=== PATIENT | male | born 1990 | race Caucasian/White ===

== ENCOUNTER 2016-03-21 11:20 | Emergency (ER) | payer SELFPAY ==
[~2016-03-21] VITALS: Ht 170.2 cm; Wt 99.0 kg
[~2016-03-21 11:20] MED LIST: CALC500C3 PO
[2016-03-21 11:29] VITALS: TEMP 37.6; Ht 170.2 cm; Wt 99.0 kg
[2016-03-21] MEDS ORDERED: MTR400 PO (11:34)
[2016-03-21] MEDS ORDERED: MTR800 PO (11:34)
[2016-03-21] MEDS ORDERED: [UNRECOGNIZED DRUG - CODE] PO (11:35)
[2016-03-21] MEDS ORDERED: AMOX500T3 PO (13:10)
--- NOTE | 2016-03-21 13:10 | EMERGENCY ROOM VISIT NOTE ---
History First contact with patient: 11:46 Chief Complaint: SORETHROAT Stated Complaint: SORE THROAT, SWELLING, RT EAR PAIN History of Present Illness The patient is a 25 year old male who presents to the Emergency Room with complaints of sore throat times one week. The patient reports that he recently got over cold symptoms. He had had a runny nose and watery eyes, but states these symptoms have resolved. He now complains of right ear pain, sore throat and a "shallow" cough. He denies headache, neck pain/stiffness, chest pain, shortness of breath or fevers. He is not taking any medications for symptoms. He did not receive a flu vaccine this year. Review of Systems A complete 10-point Review of Systems was discussed with the patient, with pertinent positives and negatives listed in the History of Present Illness. All remaining Review of Systems questions can be considered negative unless otherwise specified. Past Medical/Surgical History Medical Problems: (1) Conjunctivitis (2) Dental abscess (3) Eye pain (4) Shoulder dislocation Social History Smoking Status: Current Every Day Smoker Alcohol Use: heavy Marital Status: in relationship Housing Status: lives with significant other Occupation Status: employed Current/Historical Medications Scheduled Amoxicillin (Amoxil), 2 TAB PO TID Dextromethorphan-Phenylephrine (Day Time Multi-Symptom Co 10-5-325 mg/15Ml), 2 TBS PO Q4 Ibuprofen (Ibuprofen), 400 MG PO BID Ibuprofen (Ibuprofen), 800 MG PO QAM Allergies Coded Allergies: No Known Allergies (Unverified , 03/21/16) Physical Exam Vital Signs Date Time Temp Pulse Resp B/P Pulse Ox O2 Delivery O2 Flow Rate FiO2 03/21/16 13:19 80 12 161/122 98 Room Air 03/21/16 11:29 37.6 101 18 185/121 96 Room Air Physical Exam VITALS: Vitals are noted on the nurse's note and reviewed by myself. Vital signs stable. GENERAL: This is a 25-year-old male, in no acute distress, nondiaphoretic, well- developed well-nourished. SKIN: Capillary reflex less than 2 seconds. HEENT: Normocephalic. PERRLA. EOMI. Nares patent. Mucous membranes moist. Slight erythema of the posterior oropharynx. No tonsillar swelling or exudates. The right tympanic membrane is erythematous and bulging. Neck is supple without nuchal rigidity. HEART: Regular rate and rhythm without murmurs gallops or rubs. LUNGS: Clear to auscultation bilaterally without wheezes, rales or rhonchi. No retractions or accessory muscle use. ABDOMEN: Positive bowel sounds x 4. Soft, nontender to palpation. NEURO: Patient was alert and oriented to person place and time. Medical Decision & Procedures Laboratory Results Test 03/21/16 12:08 Influenza Type A Antigen Neg for Influ A (NEG) Influenza Type B Antigen Neg for Influ B (NEG) Medical Decision Differential diagnosis includes influenza, strep pharyngitis, viral syndrome, among others. The patient was evaluated as above. He does have a low-grade fever on examination. Rapid influenza was negative. Rapid strep was negative. Strep culture is pending. The patient does appear to have a right otitis media. He will be placed on Augmentin. He will follow-up with his primary care provider as needed. Conservative measures were discussed. He verbalized understanding and was discharged home in good condition. Impression Primary Impression: Right otitis media Additional Impression: Acute pharyngitis Departure Information Dispostion Home / Self-Care Condition GOOD Prescriptions Amoxicillin (AMOXIL) 500 Mg Tab 2 TAB PO TID for 7 Days, #42 TAB Prov: Mandy Polanco ., NILDA 03/21/16 Referrals No Doctor, Assigned (PCP) Patient Instructions My [facility] Additional Instructions You have been treated in the Emergency Department for an Inner Ear Infection ( Otitis Media) and a sore throat. You were prescribed amoxicillin to be taken as prescribed. This is an antibiotic. All antibiotics have the potential to cause diarrhea. Stop this medication and contact a medical provider if you were to develop any significant adverse side effects including: wheezing, shortness of breath, passing out, vomiting, or a diffuse rash. Always take antibiotics as directed and COMPLETE the ENTIRE course regardless of the improvement of your symptoms. For pain and fever control, you can use the following [id number] medicines (if >12 yo): - Regular strength (325mg/tab) Tylenol (acetaminophen) 2 tabs every 4-6 hours as needed. Do not exceed 12 tablets in a 24 hour period. Avoid taking more than 4 grams (4000 mg) of Tylenol per day. This includes any other sources of acetaminophen you may take on a regular basis. - Regular strength (200 mg/tab) Advil (ibuprofen) 1-2 tabs every 4-6 hours as needed. Do not exceed a dose of 3200 mg per day. You should follow-up with your Primary Care Provider from today's Emergency Department visit. Return to the emergency department if you develop the following symptoms despite treatment course outlined above: headache, fever, intractable pain, increased redness, swelling, or purulent discharge. Problem Qualifiers Primary Impression: Right otitis media Otitis media type: suppurative Chronicity: acute Recurrence: not specified as recurrent Spontaneous tympanic membrane rupture: without spontaneous rupture Qualified Codes: H66.001 - Acute suppurative otitis media without spontaneous rupture of ear drum, right ear Additional Impression: Acute pharyngitis Pharyngitis/tonsillitis etiology: unspecified etiology Qualified Codes: J02.9 - Acute pharyngitis, unspecified
[2016-03-21 13:19] VITALS: BP 161/122; PULSE 80; O2SAT 98
[2016-06-22] MEDS ORDERED: ACETTAB14 PO (19:52)
[2016-06-23] MEDS ORDERED: EPP3/2 IM (13:36)
[2016-06-23] MEDS ORDERED: NRV5 PO (13:36)
[2016-06-23] MEDS ORDERED: METH4PAK PO (13:36)
[2016-06-23] MEDS ORDERED: NCDT14 TD (13:36)
== END 2016-03-21 13:30 | disposition home or self-care (01) ==
LOC: C.EDB 11:22 → C.EDA 13:30
DX: J02.9 Acute pharyngitis, unspecified (principal); H66.91 Otitis media, unspecified, right ear; F17.200 Nicotine dependence, unspecified, uncomplicated; Z86.19 Personal history of other infectious and parasitic diseases

== ENCOUNTER 2016-05-01 03:14 | Emergency (ER) | payer SELFPAY ==
[~2016-05-01 03:14] MED LIST changes: +AMOX500T3 PO; -CALC500C3 PO; +MTR400 PO; +MTR800 PO; +[UNRECOGNIZED DRUG - CODE] PO
--- NOTE | 2016-05-02 06:14 | EMERGENCY ROOM VISIT NOTE ---
History Stated Complaint: Q-TIP STUCK IN EAR History of Present Illness The patient is a 25 year old male who presents to the Emergency Room with complaints of a Q-tip stuck in his left ear. The patient reports that he was cleaning his ear with a Q-tip and that part of the Q-tip broke off and is stuck in his ear. He tried to remove it with a toothpick but was unable. He states that his hearing is slightly muffled. He denies any pain in the ear. Review of Systems A complete 10-point Review of Systems was discussed with the patient, with pertinent positives and negatives listed in the History of Present Illness. All remaining Review of Systems questions can be considered negative unless otherwise specified. Past Medical/Surgical History Medical Problems: (1) Conjunctivitis (2) Dental abscess (3) Eye pain (4) Shoulder dislocation Current/Historical Medications Scheduled Amoxicillin (Amoxil), 2 TAB PO TID Dextromethorphan-Phenylephrine (Day Time Multi-Symptom Co 10-5-325 mg/15Ml), 2 TBS PO Q4 Ibuprofen (Ibuprofen), 400 MG PO BID Ibuprofen (Ibuprofen), 800 MG PO QAM Allergies Coded Allergies: No Known Allergies (Unverified , 03/21/16) Physical Exam Physical Exam VITALS: Vitals are noted on the nurse's note and reviewed by myself. Vital signs stable. GENERAL: This is a 25-year-old male, in no acute distress, nondiaphoretic, well- developed well-nourished. EARS: External auditory canals clear, tympanic membranes pearly walsh without erythema or effusion bilaterally. No foreign objects in the ear canals. NEURO: Patient was alert and oriented to person place and time. Medical Decision & Procedures Medical Decision The patient was evaluated as above. Examination did not reveal any foreign bodies in the ear canal. There is no evidence of tympanic membrane perforation. The patient was informed of this. He will follow-up with his primary care provider as needed. He verbalized understanding was discharged home in good condition. Impression Primary Impression: Hearing difficulty of left ear Departure Information Dispostion Home / Self-Care Condition GOOD Referrals No Doctor, Assigned (PCP)
[2016-06-22] MEDS ORDERED: ACETTAB14 PO (19:52)
[2016-06-23] MEDS ORDERED: METH4PAK PO (13:36)
[2016-06-23] MEDS ORDERED: NRV5 PO (13:36)
[2016-06-23] MEDS ORDERED: NCDT14 TD (13:36)
[2016-06-23] MEDS ORDERED: EPP3/2 IM (13:36)
== END 2016-05-01 04:05 | disposition home or self-care (01) ==
LOC: MERGE 03:14 → C.ED 03:14 → C.EDB 04:05
DX: H91.92 Unspecified hearing loss, left ear (principal)

== ENCOUNTER 2016-06-22 19:09 | Observation (INO) | payer SELFPAY ==
[~2016-06-22] VITALS: Ht 172.7 cm; Wt 99.2 kg
[2016-06-22] MEDS ORDERED: EpINEphrine INJ 1MG/ML AMP 1 MG/ML AMP IM STA (19:26)
[2016-06-22] MEDS ORDERED: DiphenhydrAMINE HCL 50 MG/ML VIAL IV STA ×2 (19:26→22:13)
[2016-06-22] MEDS ORDERED: SODIUM CHLORIDE 0.9% 1000ML 1,000 ML IV STA (19:26)
[2016-06-22] MEDS ORDERED: FAMOTIDINE 20MG/102 ML D5W IV STA (19:26)
[2016-06-22] MEDS ORDERED: DEXAMETHASONE SOD INJ 10 MG/ML VIAL IV ONE (19:30)
[2016-06-22] MEDS ORDERED: EpINEphrine INJ 1MG/ML AMP 1 MG/ML AMP ONE (19:33)
--- NOTE | 2016-06-22 19:33 | EMERGENCY ROOM VISIT NOTE ---
History Report prepared by Lenore: Louie Cruz Under the Supervision of: Dr. Elroy Lorenz M.D. First contact with patient: 19:22 Chief Complaint: ALLERGIC REACTION Stated Complaint: RED FACE, ITCHING OF THE SKIN, SCRATHCY EYES Nursing Triage Summary: Pt reports red face, eye irritation puffiness rash to arms back and chest for the past 30 minutes. Pt reports he was at work at time of onset. some throat scratchiness and tightness. NKA. denies Benadryl before coming in. Reports has happened once in the past History of Present Illness The patient is a 26 year old male who presents to the Emergency Room with complaints of an episode of allergic reaction beginning just [employer]. He reports he was at work when his face began to swell and he developed a rash. He notes he was eating a sandwich at the time his symptoms began. This was a sandwich that he made himself, with eggs, steak, onion, and cheese. He notes this happened before recently. The patient had gone to [facility] and was given a prednisone taper which helped. He went back to [employer] and received more prednisone which he finished about 1 week ago. He reports having some shortness of breath at this time. The patient has not taken Benadryl, and was told to take Claritin by [employer]. Source of History: patient Onset: just [employer] Position: other (global) Quality: other (allergic reaction) Timing: other (episode) Associated Symptoms: + SOB, + rash Note: Patient reports facial swelling. Review of Systems See HPI for pertinent positives & negatives. A total of 10 systems reviewed and were otherwise negative. Past Medical & Surgical Medical Problems: (1) Conjunctivitis (2) Dental abscess (3) Eye pain (4) Shoulder dislocation Family History No pertinent family history stated. Social History Smoking Status: Current Every Day Smoker Alcohol Use: heavy Marital Status: in relationship Housing Status: lives with significant other Occupation Status: employed Current/Historical Medications Scheduled PRN Acetaminophen-Caffeine (Excedrin Tension Headache), Unknown Dose PO DIRECTED PRN for Headache Allergies Coded Allergies: No Known Allergies (Unverified , 06/22/16) Physical Exam Vital Signs Date Time Temp Pulse Resp B/P Pulse Ox O2 Delivery O2 Flow Rate FiO2 06/22/16 22:33 104 20 171/103 06/22/16 22:15 157/116 06/22/16 22:00 125 25 158/110 93 Room Air 06/22/16 21:45 187/103 06/22/16 21:30 126 25 175/96 93 Room Air 06/22/16 21:00 118 23 155/78 94 Room Air 06/22/16 20:45 124 27 176/93 95 Room Air 06/22/16 20:30 117 19 160/88 97 Room Air 06/22/16 20:15 107 20 162/86 98 Room Air 06/22/16 20:00 110 20 175/97 97 Room Air 06/22/16 19:53 192/101 06/22/16 19:45 111 17 98 Room Air 06/22/16 19:39 195/108 97 Room Air 06/22/16 19:30 134 18 06/22/16 19:22 125 06/22/16 19:15 96 Room Air 06/22/16 19:12 36.8 127 18 177/91 96 Room Air Physical Exam GENERAL: Patient is acutely ill appearing and in no acute distress. HEENT: No acute trauma, normocephalic atraumatic, mucous membranes moist, no nasal congestion, no scleral icterus. Swelling of lips and ears. NECK: No stridor, no adenopathy, no meningismus, trachea is midline. LUNGS: No dyspnea. Clear to auscultation and equal bilaterally. Mild expiratory wheezing. HEART: Tachycardic rate and regular rhythm. No murmurs, rubs, gallops appreciated. ABDOMEN: Soft, nontender, bowel sounds positive, no masses appreciated, no peritonitis. BACK: No midline tenderness, no CVA tenderness EXTREMITIES: Normal motion all extremities, no cyanosis, no edema. NEUROLOGIC: Alert and oriented, no acute motor or sensory deficits, no focal weakness, cranial nerves grossly intact. SKIN: Diffuse erythema and hives of entire body. Medical Decision & Procedures Laboratory Results 06/22/16 19:40 Red Blood Count 4.93, Mean Corpuscular Volume 93.7, Mean Corpuscular Hemoglobin 31.8, Mean Corpuscular Hemoglobin Concent 34.0, Mean Platelet Volume 9.4, Neutrophils (%) (Auto) 68.8, Lymphocytes (%) (Auto) 24.2, Monocytes (%) (Auto) 5.7, Eosinophils (%) (Auto) 0.6, Basophils (%) (Auto) 0.2, Neutrophils # (Auto) 10.69, Lymphocytes # (Auto) 3.76, Monocytes # (Auto) 0.89, Eosinophils # (Auto) 0.09, Basophils # (Auto) 0.03 06/22/16 19:40 Test 06/22/16 19:40 06/22/16 22:21 06/22/16 22:47 White Blood Count 15.54 K/uL (4.8-10.8) Red Blood Count 4.93 M/uL (4.7-6.1) Hemoglobin 15.7 g/dL (14.0-18.0) Hematocrit 46.2 % (42-52) Mean Corpuscular Volume 93.7 fL (80-100) Mean Corpuscular Hemoglobin 31.8 pg (25-34) Mean Corpuscular Hemoglobin Concent 34.0 g/dl (32-36) Platelet Count 233 K/uL (130-400) Mean Platelet Volume 9.4 fL (7.4-10.4) Neutrophils (%) (Auto) 68.8 % Lymphocytes (%) (Auto) 24.2 % Monocytes (%) (Auto) 5.7 % Eosinophils (%) (Auto) 0.6 % Basophils (%) (Auto) 0.2 % Neutrophils # (Auto) 10.69 K/uL (1.4-6.5) Lymphocytes # (Auto) 3.76 K/uL (1.2-3.4) Monocytes # (Auto) 0.89 K/uL (0.11-0.59) Eosinophils # (Auto) 0.09 K/uL (0-0.5) Basophils # (Auto) 0.03 K/uL (0-0.2) RDW Standard Deviation 45.1 fL (36.4-46.3) RDW Coefficient of Variation 13.2 % (11.5-14.5) Immature Granulocyte % (Auto) 0.5 % Immature Granulocyte # (Auto) 0.08 K/uL (0.00-0.02) Anion Gap 9.0 mmol/L (3-11) Est Creatinine Clear Calc Drug Dose 114.0 ml/min Estimated GFR () 105.3 Estimated GFR (Non- 90.9 BUN/Creatinine Ratio 13.4 (10-20) Calcium Level 8.2 mg/dl (8.5-10.1) Magnesium Level 2.0 mg/dl (1.8-2.4) Total Bilirubin 0.5 mg/dl (0.2-1) Direct Bilirubin < 0.1 mg/dl (0-0.2) Aspartate Amino Transf (AST/SGOT) 42 U/L (15-37) Alanine Aminotransferase (ALT/SGPT) 75 U/L (12-78) Alkaline Phosphatase 66 U/L (45-117) Total Protein 6.9 gm/dl (6.4-8.2) Albumin 3.6 gm/dl (3.4-5.0) Thyroid Stimulating Hormone (TSH) 1.960 uIu/ml (0.300-4.500) Urine Color YELLOW Urine Appearance CLEAR (CLEAR) Urine pH 6.5 (4.5-7.5) Urine Specific [place] 1.026 (1.000-1.030) Urine Protein NEG (NEG) Urine Glucose (UA) NEG (NEG) Urine Ketones 1+ (NEG) Urine Occult Blood NEG (NEG) Urine Nitrite NEG (NEG) Urine Bilirubin NEG (NEG) Urine Urobilinogen NEG (NEG) Urine Leukocyte Esterase NEG (NEG) Laboratory results as reviewed by me. Medications Administered Medications (Trade) Dose Ordered Sig/Royce Route Start Time Stop Time Status Last Admin Dose Admin Famotidine (Pepcid 20mg/100 ml) 20 mg ONE STAT IV 06/22/16 19:26 06/22/16 19:27 DC 06/22/16 19:33 20 MG Diphenhydramine HCl (Benadryl Inj) 50 mg NOW STAT IV 06/22/16 19:26 06/22/16 19:27 DC 06/22/16 19:33 50 MG Dexamethasone Sodium Phosphate 10 mg 10 mg NOW ONCE IV 06/22/16 19:30 06/22/16 19:31 DC 06/22/16 19:33 10 MG Sodium Chloride (Nss 1000ml) 1,000 ml @ 999 mls/hr Q1H1M STAT IV 06/22/16 19:26 06/22/16 20:26 DC 06/22/16 19:33 999 MLS/HR Epinephrine HCl (EpINEphrine INJ 1MG/ML AMP/VIAL) 0.5 mg NOW STAT IM 06/22/16 19:26 06/22/16 19:27 DC 06/22/16 19:30 0.5 MG Diphenhydramine HCl (Benadryl Inj) 50 mg NOW STAT IV 06/22/16 22:13 06/22/16 22:14 DC 06/22/16 22:34 50 MG Potassium Chloride (Klor-Con M10) 40 meq NOW STAT PO 06/22/16 22:21 06/22/16 22:29 DC 06/22/16 22:34 40 MEQ ED Course 1922: The patient was evaluated in room C12B. A complete history and physical exam was performed. 1925: Ordered Epinephrine HCl 0.5 mg IM, NSS 1,000 ml @ 999 mls/hr IV, Benadryl Inj 50 mg IV, and Famotidine 20 mg IV. 1929: Ordered Decadron Inj 10 mg IV. 1938: I reassessed the patient. Improvements are noted with his swelling, diffuse hives and erythema, and breathing. His heart rate is down to 105. 2028: I reassessed the patient. He has resolution of his symptoms and is feeling much better. : The patient started to develop hives over his chest and abdomen without swelling. 2212: Ordered Benadryl Inj 50 mg IV. 2213: Discussed the patient's case with Dr. Quan. The patient will be evaluated for further treatment and disposition. Medical Decision Differential: Allergic Reaction, Urticaria, Anaphylaxis, Meredith-Jeremiah Syndrome, Toxic Epidermal Necrolysis, Erythema Multiforme, Cellulitis, amongst other etiologies entertained. 26 yr old male arrives with complaint of allergic reaction. On initial evaluation he is anaphylactic. Rapidly improved with IM Epi. Steroids, benadryl, pepcid and fluids given. HTN chronic per patient. Tachy likely secondary to anaphylaxis initially, and then meds after. He was doing well for quite some time but after 3 hours started developing diffuse hives/urticaria though no face/lip swelling. Given this is reoccurance within a few hours of anaphylaxis I do not feel it is safe sending home. IV benadryl given in addition to previous dose and patient will come in to hospitalist service. Consults Time Called: [id number] Consulting Physician: Jagdish Melchor Returned Call: [phone] Discussed the patient's case with Dr. Quan. The patient will be evaluated for further treatment and disposition. Impression Primary Impression: Anaphylaxis Critical Care I have personally spent greater than 40 minutes of critical care time in the direct management of this patient. This was a life/limb threatening event. This includes time spent evaluating patient, direct bedside care, chart review, placing orders, interpretation of diagnostic studies, discussion with consultants, patient, and family members, as well as other required patient management activities. This 40 minutes is in excess of all separately billable procedures. Scribe Attestation The scribe's documentation has been prepared under my direction and personally reviewed by me in its entirety. I confirm that the note above accurately reflects all work, treatment, procedures, and medical decision making performed by me. Departure Information Dispostion Being Evaluated By Hospitalist Referrals No Doctor, Assigned (PCP) Patient Instructions My [facility] Problem Qualifiers Primary Impression: Anaphylaxis Encounter type: initial encounter Qualified Codes: T78.2XXA - Anaphylactic shock, unspecified, initial encounter
[2016-06-22] MEDS ORDERED: ACETTAB15 PO (19:52)
[2016-06-22 19:53] LABS: BASO % 0.2 %; BASO ABS # 0.03 K/uL (0-0.2); COMPLETE YES; EOS % 0.6 %; HEMATOCRIT 46.2 % (42-52); IG% 0.5 %; LYMPH % 24.2 %; LYMPH ABS # 3.76 K/uL (1.2-3.4); MEAN CELL VOLUME 93.7 fL (80-100); MEAN CORPUSCULAR HEMOGLOBIN 31.8 pg (25-34); MEAN PLATELET VOLUME 9.4 fL (7.4-10.4); MONO % 5.7 %; NEUT % 68.8 %; PLATELET COUNT 233 K/uL (130-400); RED BLOOD COUNT 4.93 M/uL (4.7-6.1); WHITE BLOOD COUNT 15.54 K/uL (4.8-10.8)
[2016-06-22 20:10] LABS: BLOOD UREA NITROGEN 15 mg/dl (7-18); BUN/CREATININE RATIO 13.4 (10-20); CALCIUM 8.2 mg/dl (8.5-10.1); CARBON DIOXIDE 26 mmol/L (21-32); CHLORIDE 107 mmol/L (98-107); GLUCOSE 147 mg/dl (70-99); POTASSIUM 3.3 mmol/L (3.5-5.1); SODIUM 142 mmol/L (136-145)
[2016-06-22] MEDS ORDERED: POTASSIUM CHLORIDE 10 MEQ TABCR PO STA (22:21)
[2016-06-22] MEDS ORDERED: LACTATED RINGER'S 1000ML 1,000 ML IV STA (22:35)
[2016-06-22 22:46] LABS: ALKALINE PHOSPHATASE 66 U/L (45-117); ALT/SGPT 75 U/L (12-78); AST/SGOT 42 U/L (15-37)
[2016-06-22 22:51] LABS: MANUAL MICROSCOPIC REQUIRED? NO; REVIEW REQ? NO; URINE APPEARANCE CLEAR (CLEAR); URINE BILIRUBIN NEG (NEG); URINE COLOR YELLOW; URINE NITRITE NEG (NEG); URINE PH 6.5 (4.5-7.5); URINE SPECIFIC GRAVITY 1.026 (1.000-1.030); UROBILINOGEN NEG (NEG); ZZUR CULT IF INDIC CLEAN CATCH NO
--- NOTE | 2016-06-22 22:57 | DIAGNOSTIC IMAGING REPORT ---
CHEST ONE VIEW PORTABLE HISTORY: Short of breath. COMPARISON: Chest 07/14/2015. FINDINGS: The lungs are clear. Cardiac silhouette is normal in size. No pleural effusions. No pneumothorax. IMPRESSION: No acute process. Electronically signed by: Kelechi Steele M.D. 06/22/2016 10:56 PM Dictated Date/Time: 06/22/2016 10:55 PM
[2016-06-22] MEDS ORDERED: CALCIUM GLUCONATE 10% 1,000 MG in SODIUM CHLORIDE 0.9% 50ML 50 ML IV STA (23:15)
[2016-06-22] MEDS ORDERED: IV FLUIDS COMPLETED PRN (23:30)
[2016-06-22] MEDS ORDERED: NICOTINE 14 MG/24 HR TDSY TD STA (23:30)
[2016-06-22] MEDS ORDERED: METOPROLOL TARTRATE 25 MG TAB PO STA (23:31)
[2016-06-22] MEDS ORDERED: THIAMINE HCL 100 MG/ML 2 ML VIAL IV STA (23:36)
[2016-06-22] MEDS ORDERED: DiphenhydrAMINE INJ 25 MG in SYRINGE 0 ML IV PRN (23:45)
[2016-06-22] MEDS ORDERED: MoRPHine SULFATE 4 MG/ML 1 ML CARP\\VIAL IV PRN (23:45)
[2016-06-22] MEDS ORDERED: LORAZEPAM 2 MG/ML 1 ML VIAL IV PRN (23:45)
[2016-06-22] MEDS ORDERED: TRAMADOL HCL 50 MG TAB PO PRN (23:45)
[2016-06-22] MEDS ORDERED: ONDANSETRON INJ 2 MG/ML 2 ML VIAL IV PRN (23:45)
[2016-06-22] MEDS ORDERED: ACETAMINOPHEN 325 MG TAB PO PRN (23:45)
[2016-06-23] MEDS ORDERED: LORAZEPAM 2 MG/ML 1 ML VIAL IV PRN
[2016-06-23] MEDS ORDERED: THIAMINE HCL INJ 100 MG in SYRINGE 9 ML IV STA (00:04)
[2016-06-23 00:18] LABS: BENZODIAZEPINE, URINE NEG (NEG); COCAINE,URINE NEG (NEG); PHENCYCLIDINE, URINE NEG (NEG)
[2016-06-23] MEDS ORDERED: DiphenhydrAMINE HCL 50 MG/ML VIAL IV PRN (00:30)
[2016-06-23 00:40] VITALS: BP 160/97; PULSE 88; TEMP 36.9; O2SAT 96; Ht 172.7 cm; Wt 99.2 kg
[2016-06-23] MEDS: NICOTINE POLACRILEX 2 MG GUM MT PRN ×2 (01:12→08:15)
[2016-06-23 03:13] VITALS: BP 144/77; PULSE 99; TEMP 36.9; O2SAT 96
[2016-06-23 04:00] VITALS: O2SAT 96
[2016-06-23] MEDS ORDERED: SODIUM CHLOR 0.45% + 20MEQ KCL 1,000 ML IV ONE (04:00)
--- NOTE | 2016-06-23 04:35 | HISTORY & PHYSICAL EXAMINATION ---
DATE OF ADMISSION: 06/22/2016 No primary care doctor. Previous PCP : Dr. Dawson Patient considering ffup w a [facility] primary care provider. Hx obtained from px and records. CHIEF COMPLAINT: Allergic reaction. HISTORY OF PRESENT ILLNESS: Medical history is significant for hypertension not on meds, ongoing tobacco abuse, regular alcohol intake, mood disorder currently not on meds, ADD as per records. About 2 weeks ago, patient noted red face, eye irritation, itchy rash in the arms, back, chest and trunk. Unclear precipitant. Denies intake on new OTC meds. Px was seen at [facility]. Impression was allergic reaction as per px. Symptoms improved with Medrol Dosepak, but not totally resolved, Patient had recurrence of symptoms a week later. Started on another course of steroids. Today the patient was at work when he noted recurrence of allergic reaction. He only recalls eating a sandwich. Patient received diphenhydramine, epinephrine, Decadron, famotidine, Benadryl in the Emergency Room. Incomplete relief of symptoms. He admits to some chest tightness and shortness of breath. No abd pain, chronic diarrhea sx w/c px attributes to ETOH intake. Usual smoker's cough sx MEDICAL HISTORY: As above. SURGERIES: None. HOME MEDICATIONS: Include Excedrin p.r.n. ALLERGIES: No known drug allergies. FAMILY HISTORY: Heart disease. PERSONAL AND SOCIAL HISTORY: Half a pack daily. Regular alcohol intake, sometimes felt to be excessive by patient's girlfriend. He works at a restaurant. REVIEW OF SYSTEMS: As per HPI, all other ROS negative. PHYSICAL EXAMINATION: VITAL SIGNS: Blood pressure was noted to be 177/91, pulse rate 107, RR 27 later 18, temperature 36.9 and sats 96 on room air. GENERAL: Noted to be obese, anxious, in no respiratory distress. SKIN: Maculopapular rash on the neck, trunk, back and arms. HEENT: [place] palpebral conjunctivae. Dry mucosa. NECK: Short neck. LUNGS: Clear to auscultation. HEART: Tachycardic. ABDOMEN: Some distension, nontender EXTREMITIES: No edema. no tenderness NEUROLOGIC: No gross focality. LABORATORIES: Hemoglobin was noted to be 15.7, hematocrit 46.5 platelets are 230 Sodium 140, potassium 3.3, chloride 107, CO2 26, BUN 50, creatinine 1.1 and glucose 147. urine ketones are +1. trop, D-dimer was normal. EKG : sinus tachycardia, left atrial enlargement. CXR no acute pathology ASSESSMENT: 1. Hypertensive urgency px has known his BP to be high for some time now not on any home meds 2. 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 chronic diarrhea poss IBS ro cdif 4. Ongoing tobacco abuse 5. mood disorder/ADD, stable off medications, 6. hypokalemia poss 2 to chronic diarrhea. 7. ETOH abuse PLAN: Observation PCU. Initiate Norvasc DT precautions. Medrol Dosepak. Benadryl p.r.n. Epipen on discharge. Outpatient Allergology consult. stool cdif Replace potassium. DT precautions nicotine patch DVT prophylaxis, SCDs. Full code. MTDD
[2016-06-23 06:02] LABS: COMPLETE YES; HEMATOCRIT 43.6 % (42-52); IG% 0.2 %; LYMPH % 8.6 %; LYMPH ABS # 0.75 K/uL (1.2-3.4); MEAN CELL VOLUME 94.4 fL (80-100); MEAN CORPUSCULAR HEMOGLOBIN 31.6 pg (25-34); MEAN CORPUSCULAR HGB CONC 33.5 g/dl (32-36); MEAN PLATELET VOLUME 9.9 fL (7.4-10.4); MONO % 1.8 %; NEUT % 89.4 %; PLATELET COUNT 221 K/uL (130-400); RED BLOOD COUNT 4.62 M/uL (4.7-6.1); WHITE BLOOD COUNT 8.69 K/uL (4.8-10.8)
[2016-06-23] MEDS: GABAPENTIN 600 MG TAB PO SCH ×2 (06:14→13:53)
[2016-06-23 06:50] LABS: BLOOD UREA NITROGEN 16 mg/dl (7-18); CALCIUM 8.4 mg/dl (8.5-10.1); CARBON DIOXIDE 25 mmol/L (21-32); CHLORIDE 106 mmol/L (98-107); GLUCOSE 218 mg/dl (70-99); POTASSIUM 4.4 mmol/L (3.5-5.1); SODIUM 139 mmol/L (136-145)
[2016-06-23] MEDS ORDERED: METHYLPREDNISOLONE 4 MG TAB PO SCH ×2 (07:00→13:00)
[2016-06-23 07:31] VITALS: BP 153/98; PULSE 84; TEMP 36.6; O2SAT 95
[2016-06-23] MEDS ORDERED: METHYLPREDNISOLONE 4MG TAB, 6 DAY TAPER PO SCH (08:00)
[2016-06-23] MEDS ORDERED: AMLODIPINE BESYLATE 5 MG TAB PO SCH (09:00)
[2016-06-23] MEDS ORDERED: NICOTINE 14 MG/24 HR TDSY TD SCH (09:00)
[2016-06-23] MEDS ORDERED: MULTIVITAMIN TAB PO SCH (09:00)
[2016-06-23] MEDS ORDERED: METOPROLOL TARTRATE 25 MG TAB PO SCH (09:00)
--- NOTE | 2016-06-23 09:51 | Progress Note ---
Internal Med Progress Note Date of Service: Jun 23, 2016. Provider Documentation: SUBJECTIVE: The patient was seen and examined Has been suffering from the rash for ~ the last 2 weeks Has had 2 courses of Medrol Dose pack No respiratory symptoms associated with it Moderate Alcohol drinker OBJECTIVE: Vital Signs-as noted below Exam: General-No distress at rest No rash noted Eyes-normal ENT-normal Neck-Supple Lungs-clear to auscultate bilaterally Heart-Regular Abdomen-Benign,no masses,bowel sound present Extremities-No edema Neuro-AAOx3 No focal neuro deficit Lab data as noted below. 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 Full code. DISPOSITION Likely discharge this Afternoon Vital Signs: Date Time Temp Pulse Resp B/P Pulse Ox O2 Delivery O2 Flow Rate FiO2 06/23/16 08:00 Room Air 06/23/16 07:31 36.6 84 18 153/98 95 Room Air 06/23/16 04:00 96 Room Air 06/23/16 03:13 36.9 99 18 144/77 96 Room Air 06/23/16 00:40 36.9 88 160/97 96 Room Air 06/22/16 22:57 106 06/22/16 22:33 104 20 171/103 06/22/16 22:15 157/116 06/22/16 22:00 125 25 158/110 93 Room Air 06/22/16 21:45 187/103 06/22/16 21:30 126 25 175/96 93 Room Air 06/22/16 21:00 118 23 155/78 94 Room Air 06/22/16 20:45 124 27 176/93 95 Room Air 06/22/16 20:30 117 19 160/88 97 Room Air 06/22/16 20:15 107 20 162/86 98 Room Air 06/22/16 20:00 110 20 175/97 97 Room Air 06/22/16 19:53 192/101 06/22/16 19:45 111 17 98 Room Air 06/22/16 19:39 195/108 97 Room Air 06/22/16 19:30 134 18 06/22/16 19:22 125 06/22/16 19:15 96 Room Air 06/22/16 19:12 36.8 127 18 177/91 96 Room Air Lab Results: Results Past 24 Hours Test 06/22/16 19:40 06/22/16 22:47 06/22/16 23:18 06/23/16 05:10 Range/Units White Blood Count 15.54 8.69 4.8-10.8 K/uL Red Blood Count 4.93 4.62 4.7-6.1 M/uL Hemoglobin 15.7 14.6 14.0-18.0 g/dL Hematocrit 46.2 43.6 42-52 % Mean Corpuscular Volume 93.7 94.4 80-100 fL Mean Corpuscular Hemoglobin 31.8 31.6 25-34 pg Mean Corpuscular Hemoglobin Concent 34.0 33.5 32-36 g/dl Platelet Count 233 221 130-400 K/uL Mean Platelet Volume 9.4 9.9 7.4-10.4 fL Neutrophils (%) (Auto) 68.8 89.4 % Lymphocytes (%) (Auto) 24.2 8.6 % Monocytes (%) (Auto) 5.7 1.8 % Eosinophils (%) (Auto) 0.6 0.0 % Basophils (%) (Auto) 0.2 0.0 % Neutrophils # (Auto) 10.69 7.76 1.4-6.5 K/uL Lymphocytes # (Auto) 3.76 0.75 1.2-3.4 K/uL Monocytes # (Auto) 0.89 0.16 0.11-0.59 K/uL Eosinophils # (Auto) 0.09 0.00 0-0.5 K/uL Basophils # (Auto) 0.03 0.00 0-0.2 K/uL RDW Standard Deviation 45.1 45.9 36.4-46.3 fL RDW Coefficient of Variation 13.2 13.3 11.5-14.5 % Immature Granulocyte % (Auto) 0.5 0.2 % Immature Granulocyte # (Auto) 0.08 0.02 0.00-0.02 K/uL Sodium Level 142 139 136-145 mmol/L Potassium Level 3.3 4.4 3.5-5.1 mmol/L Chloride Level 107 106 98-107 mmol/L Carbon Dioxide Level 26 25 21-32 mmol/L Anion Gap 9.0 8.0 3-11 mmol/L Blood Urea Nitrogen 15 16 7-18 mg/dl Creatinine 1.10 1.30 0.60-1.40 mg/dl Est Creatinine Clear Calc Drug Dose 114.0 96.6 ml/min Estimated GFR () 105.3 86.1 Estimated GFR (Non- 90.9 74.3 BUN/Creatinine Ratio 13.4 12.0 10-20 Random Glucose 147 218 70-99 mg/dl Calcium Level 8.2 8.4 8.5-10.1 mg/dl Magnesium Level 2.0 1.8-2.4 mg/dl Total Bilirubin 0.5 0.2-1 mg/dl Direct Bilirubin < 0.1 0-0.2 mg/dl Aspartate Amino Transf (AST/SGOT) 42 15-37 U/L Alanine Aminotransferase (ALT/SGPT) 75 12-78 U/L Alkaline Phosphatase 66 45-117 U/L Total Protein 6.9 6.4-8.2 gm/dl Albumin 3.6 3.4-5.0 gm/dl Thyroid Stimulating Hormone (TSH) 1.960 0.300-4.500 uIu/ml Urine Color YELLOW Urine Appearance CLEAR CLEAR Urine pH 6.5 4.5-7.5 Urine Specific [place] 1.026 1.000-1.030 Urine Protein NEG NEG Urine Glucose (UA) NEG NEG Urine Ketones 1+ NEG Urine Occult Blood NEG NEG Urine Nitrite NEG NEG Urine Bilirubin NEG NEG Urine Urobilinogen NEG NEG Urine Leukocyte Esterase NEG NEG Urine Opiates Screen NEG NEG Urine Methadone, Qualitative NEG NEG Urine Barbiturates NEG NEG Urine Phencyclidine (PCP) Level NEG NEG Ur Amphetamine/Methamphetamine NEG NEG MDMA (Ecstasy) Screen NEG NEG Urine Benzodiazepines Screen NEG NEG Urine Cocaine Metabolite NEG NEG Urine Marijuana (THC) NEG NEG Activated Partial Thromboplast Time 24.8 21.0-31.0 SECONDS Partial Thromboplastin Ratio 1.0 D-Dimer 440 0-500 ug/L FEU Lactic Acid Level 1.2 0.4-2.0 mmol/L Troponin I < 0.015 0-0.045 ng/ml Chemistry Specimen Hemolysis Microbiology Results 06/22/16 Blood Culture, Received Pending 06/22/16 Blood Culture, Received Pending
[2016-06-23 11:52] VITALS: BP 147/82; PULSE 95; TEMP 36.9; O2SAT 95
[2016-06-23] MEDS ORDERED: EPP3/2 IM (13:36)
[2016-06-23] MEDS ORDERED: METH4PAK PO (13:36)
[2016-06-23] MEDS ORDERED: NCDT14 TD (13:36)
[2016-06-23] MEDS ORDERED: NRV5 PO (13:36)
--- NOTE | 2016-06-23 13:39 | Discharge Instructions ---
Discharge Instructions Date of Service Jun 23, 2016. Admission Reason for Admission: SOB Discharge Discharge Diagnosis / Problem: Allergic reaction to unknown substance Discharge Goals Goal(s): Prevent Disease Progression Activity Recommendations Activity Limitations: resume your previous activity . Instructions / Follow-Up Instructions / Follow-Up Dr Dawson on 06/26/16 at 10:00AM and Dr Brooks (Fuel Cell Repairer) on 07/30/16 at 8AM Current Hospital Diet Patient's current hospital diet: AHA Diet (Heart Healthy), Low Lactose Diet Discharge Diet Recommended Diet: Regular Diet Pending Studies Studies pending at discharge: no Medical Emergencies . Who to Call and When: Medical Emergencies: If at any time you feel your situation is an emergency, please call 911 immediately. . Non-Emergent Contact Non-Emergency issues call your: Primary Care Provider . Past History Medical & Surgical History: (1) Hypertension (2) ADD (attention deficit disorder) (3) Mood disorder (4) SOB (shortness of breath) . "Provider Documentation" section prepared by Jannie Vera. . VTE Core Measure Inpt VTE Proph given/why not?: SCD's
[2016-06-23 13:53] VITALS: BP 147/82; PULSE 95; TEMP 36.9; O2SAT 95
--- NOTE | 2016-06-23 17:26 | Discharge Summary ---
Discharge Summary Date of Service Jun 23, 2016. Discharge Summary Admission Date: Jun 22, 2016 at 23:14 Discharge Date: Jun 23, 2016 Discharge Disposition: Home Principal Diagnosis: Allergic reaction to unknown substance Secondary Diagnoses/Problems: Please see H&P and Hospital Progress note Medication Reconciliation New Medications: Epinephrine (Epipen) 0.3 Mg/0.3 Ml Inj 0.3 MG IM UD, #1 Methylprednisolone (Medrol Dosepak) 4 Mg Black 1 PKT PO UD for 6 Days, #1 PKT Amlodipine Besylate (Amlodipine Besylate) 5 Mg Tab 2.5 MG PO QAM for 30 Days, #15 TAB Nicotine (Nicotine) 1 Patch Tdsy 1 PATCH TD QAM for 30 Days, #30 Continued Medications: Acetaminophen-Caffeine (Excedrin Tension Headache) 1 Tab Tab Unknown Dose PO DIRECTED PRN for Headache Admission Information HPI (per Admitting provider): DATE OF ADMISSION: 06/22/2016 No primary care doctor. Previous PCP : Dr. Dawson Patient considering ffup w a [facility] primary care provider. Hx obtained from px and records. CHIEF COMPLAINT: Allergic reaction. HISTORY OF PRESENT ILLNESS: Medical history is significant for hypertension not on meds, ongoing tobacco abuse, regular alcohol intake, mood disorder currently not on meds, ADD as per records. About 2 weeks ago, patient noted red face, eye irritation, itchy rash in the arms, back, chest and trunk. Unclear precipitant. Denies intake on new OTC meds. Px was seen at [facility]. Impression was allergic reaction as per px. Symptoms improved with Medrol Dosepak, but not totally resolved, Patient had recurrence of symptoms a week later. Started on another course of steroids. Today the patient was at work when he noted recurrence of allergic reaction. He only recalls eating a sandwich. Patient received diphenhydramine, epinephrine, Decadron, famotidine, Benadryl in the Emergency Room. Incomplete relief of symptoms. He admits to some chest tightness and shortness of breath. No abd pain, chronic diarrhea sx w/c px attributes to ETOH intake. Usual smoker's cough sx MEDICAL HISTORY: As above. SURGERIES: None. HOME MEDICATIONS: Include Excedrin p.r.n. ALLERGIES: No known drug allergies. FAMILY HISTORY: Heart disease. PERSONAL AND SOCIAL HISTORY: Half a pack daily. Regular alcohol intake, sometimes felt to be excessive by patient's girlfriend. He works at a restaurant. REVIEW OF SYSTEMS: As per HPI, all other ROS negative. PHYSICAL EXAMINATION: VITAL SIGNS: Blood pressure was noted to be 177/91, pulse rate 107, RR 27 later 18, temperature 36.9 and sats 96 on room air. GENERAL: Noted to be obese, anxious, in no respiratory distress. SKIN: Maculopapular rash on the neck, trunk, back and arms. HEENT: [place] palpebral conjunctivae. Dry mucosa. NECK: Short neck. LUNGS: Clear to auscultation. HEART: Tachycardic. ABDOMEN: Some distension, nontender EXTREMITIES: No edema. no tenderness NEUROLOGIC: No gross focality. LABORATORIES: Hemoglobin was noted to be 15.7, hematocrit 46.5 platelets are 230 Sodium 140, potassium 3.3, chloride 107, CO2 26, BUN 50, creatinine 1.1 and glucose 147. urine ketones are +1. trop, D-dimer was normal. EKG : sinus tachycardia, left atrial enlargement. CXR no acute pathology ASSESSMENT: 1. Hypertensive urgency px has known his BP to be high for some time now not on any home meds 2. 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 chronic diarrhea poss IBS ro cdif 4. Ongoing tobacco abuse 5. mood disorder/ADD, stable off medications, 6. hypokalemia poss 2 to chronic diarrhea. 7. ETOH abuse PLAN: Observation PCU. Initiate Norvasc DT precautions. Medrol Dosepak. Benadryl p.r.n. Epipen on discharge. Outpatient Allergology consult. stool cdif Replace potassium. DT precautions nicotine patch DVT prophylaxis, SCDs. Full code. 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 Full code. DISPOSITION Likely discharge this Afternoon Total time spent on discharge =35 minutes This includes examination of the patient, discharge planning, medication reconciliation, and communication with other providers. Discharge Instructions Date of Service Jun 23, 2016. Admission Reason for Admission: SOB Discharge Discharge Diagnosis / Problem: Allergic reaction to unknown substance Discharge Goals Goal(s): Prevent Disease Progression Activity Recommendations Activity Limitations: resume your previous activity . Instructions / Follow-Up Instructions / Follow-Up Dr Dawson on 06/26/16 at 10:00AM and Dr Brooks ([employer] Jumpbasting) on 07/30/16 at 8AM Current Hospital Diet Patient's current hospital diet: AHA Diet (Heart Healthy), Low Lactose Diet Discharge Diet Recommended Diet: Regular Diet Pending Studies Studies pending at discharge: no Medical Emergencies . Who to Call and When: Medical Emergencies: If at any time you feel your situation is an emergency, please call 911 immediately. . Non-Emergent Contact Non-Emergency issues call your: Primary Care Provider . Past History Medical & Surgical History: (1) Hypertension (2) ADD (attention deficit disorder) (3) Mood disorder (4) SOB (shortness of breath) . "Provider Documentation" section prepared by Jannie Vera. . VTE Core Measure Inpt VTE Proph given/why not?: SCD's <Electronically signed by Jannie Vera M.D.> Signed: 06/23/16 [id number] Additional Copies To Vinay Dawson M.D.
[2016-06-23] MEDS ORDERED: GABAPENTIN 600 MG TAB PO SCH ×2 (20:00)
[2016-06-24] MEDS ORDERED: METHYLPREDNISOLONE 4 MG TAB PO SCH ×2 (07:00→21:00)
[2016-06-24] MEDS ORDERED: THIAMINE HCL 100 MG TAB PO SCH (09:00)
[2016-06-25] MEDS ORDERED: GABAPENTIN 600 MG TAB PO SCH
[2016-06-25] MEDS ORDERED: METHYLPREDNISOLONE 4 MG TAB PO SCH (07:00)
[2016-06-26] MEDS ORDERED: METHYLPREDNISOLONE 4 MG TAB PO SCH (07:00)
[2016-06-26] MEDS ORDERED: GABAPENTIN 600 MG TAB PO SCH (12:00)
[2016-06-27] MEDS ORDERED: METHYLPREDNISOLONE 4 MG TAB PO SCH (07:00)
[2016-06-28] MEDS ORDERED: METHYLPREDNISOLONE 4 MG TAB PO SCH (07:00)
== END 2016-06-23 14:15 | disposition home or self-care (01) ==
LOC: ENRESERVTM → ENRESERVDT → C.EDB 19:10 → C.2T 23:14
PROVIDERS: ADMIT Internal Medicine; ATTEND Internal Medicine
DX: T78.40XA Allergy, unspecified, initial encounter (principal); X58.XXXA Exposure to other specified factors, initial encounter; I10 Essential (primary) hypertension; K52.9 Noninfective gastroenteritis and colitis, unspecified

== ENCOUNTER → 2016-09-22 | Outpatient (CLI) | payer OTHER ==
[~2016-09-22] MED LIST changes: +ACETTAB14 PO; -AMOX500T3 PO; +EPP3/2 IM; -MTR400 PO; -MTR800 PO; +NCDT14 TD; +NRV5 PO; -[UNRECOGNIZED DRUG - CODE] PO
== END | disposition home or self-care (01) ==
LOC: C.LAB 22:27
DX: Z02.83 Encounter for blood-alcohol and blood-drug test (principal)